=== PATIENT | female | born 1950 ===

== ENCOUNTER 2024-08-20 14:22 | Outpatient (CLI) | payer MEDICARE, SELFPAY ==
--- NOTE | 2024-08-20 14:31 | XR_ITS ---
WS: [id number] SCREENING DEXA SCAN [place] CLINICAL INFORMATION: OSTEOPOROSIS COMPARISON: None. FINDINGS: The L1-L4 bone mineral density measures 0.734 g/cm2. This corresponds to a T score score of -3.7 and Z score of -1.2. Left forearm bone mineral density measures 0.492. This corresponds to a T score of -4.4 and Z score of -2.0. . XR/XR DEXA axial skeleton* [id number] IMPRESSION: Osteoporosis lumbar spine and LEFT forearm.
== END 2024-08-20 14:23 | disposition home or self-care (01) ==
LOC: RAD 14:24
PROVIDERS: PCP Physician Assistant; Visit Provider Physician Assistant
DX: Z78.0 Asymptomatic menopausal state (principal); M81.0 Age-related osteoporosis without current pathological fracture
CPT/HCPCS: 77080

== ENCOUNTER 2025-01-15 10:08 | Oncology outpatient (recurring) (ONCR) | payer MEDICARE, SELFPAY ==
[2025-01-15] MEDS: denosumab-bbdz 60 MG Syringe SUBCUT (10:58)
== END 2025-01-24 23:59 | disposition home or self-care (01) ==
PROVIDERS: PCP Physician Assistant; Visit Provider Physician Assistant
DX: M81.0 Age-related osteoporosis without current pathological fracture (principal); Z79.899 Other long term (current) drug therapy
CPT/HCPCS: 96372; Q5136